=== PATIENT | female | born 1985 | race Two or more races ===

== ENCOUNTER 2025-03-10 21:51 | Inpatient (IN) | payer OTHER ==
[2025-03-10 22:30] VITALS: BMI 35.6
[2025-03-10] MEDS ORDERED: hydrOXYzine PAMOATE 25 MG CAPSULE (FP) PO PRN (22:42)
[2025-03-10] MEDS ORDERED: MAG HYDROX/AL HYDROX/SIMETH 30 ML UNIT-DOSE CUP PO PRN (22:42)
[2025-03-10] MEDS ORDERED: IBUPROFEN 400 MG TABLET (FP) PO PRN (22:42)
[2025-03-10] MEDS ORDERED: DICYCLOMINE HCL 10 MG CAPSULE PO PRN (22:42)
[2025-03-10] MEDS ORDERED: ACETAMINOPHEN 325 MG TABLET (FP) PO PRN (22:42)
[2025-03-10] MEDS ORDERED: LOPERAMIDE HCL 2 MG CAPSULE PO PRN (22:42)
[2025-03-10] MEDS ORDERED: BENZOCAINE/MENTHOL (CHLORASEPTIC ) LOZENGE MM PRN (22:42)
[2025-03-10] MEDS ORDERED: NALOXONE (NARCAN) HCL 4 MG/0.1 ML SPRAY NS PRN (22:42)
[2025-03-10] MEDS ORDERED: POLYETHYLENE GLYCOL (HEALTHYLAX) 3350 17 GM PACKET PO PRN (22:42)
[2025-03-10] MEDS ORDERED: METHOCARBAMOL 500 MG TABLET PO PRN (22:42)
[2025-03-10] MEDS ORDERED: ONDANSETRON *ODT* 4 MG TABLET SL PRN (22:42)
[2025-03-10] MEDS ORDERED: MAGNESIUM HYDROX 2400MG/30ML ORAL SUSPENSION 30 ML CUP PO PRN (22:42)
[2025-03-10] MEDS ORDERED: BENZONATATE 200 MG CAPSULE PO PRN (22:42)
[2025-03-10] MEDS ORDERED: guaiFENesin 600 MG TABLET.ER (FP) PO PRN (22:42)
[2025-03-10] MEDS ORDERED: IBUPROFEN 600 MG TABLET (FP) PO PRN (22:42)
[2025-03-10] MEDS ORDERED: BISMUTH SUBSALICYLATE 524 MG/30 ML PO PRN (22:42)
[2025-03-11] MEDS: PRENATAL VITAMINS W/ FOLIC ACID TABLET (FP) PO SCH (10:09)
[2025-03-11 11:01] LABS: MCHC 33.6 g/dl (32.2-35.5); MEAN CELL VOLUME 91.0 fl (79.4-94.8); MEAN PLT VOLUME 10.6 fl (9.4-12.3); RDW 12.3 % (12.1-16.8)
[2025-03-11 11:08] LABS: GLUCOSE,RANDOM 92 mg/dL (74-106); TOT PROT 6.9 g/dl (6.4-8.2)
[2025-03-11 11:11] LABS: ALK PHOS 126 U/L (40-150)
[2025-03-11 11:14] LABS: CREATININE 0.83 mg/dL (0.55-1.3); SGOT/AST 53 U/L (5-34); SGPT/ALT 31 U/L (0-55)
[2025-03-11 11:30] LABS: CO2 28 mmol/L (21-32)
[2025-03-11] MEDS: POTASSIUM CHLORIDE TABS 20 MEQ TABLET.ER (FP) PO ONE (15:41)
[2025-03-11] MEDS ORDERED: POTASSIUM CHLORIDE TABS 10 MEQ TABLET.ER (FP) PO ONE (15:45)
[2025-03-11] MEDS ORDERED: MELATONIN 5 MG TABLETS PO SCH (22:00)
[2025-03-11] MEDS: THIAMINE 100 MG TABLET PO SCH (22:45)
[2025-03-11] MEDS: SUVOREXANT 10 MG TABLET PO PRN (22:45)
[2025-03-13 10:28] LABS: GLUCOSE,RANDOM 88.0 mg/dL (74-106); TOT PROT 6.1 g/dl (6.4-8.2)
[2025-03-13 10:29] LABS: CO2 27.0 mmol/L (21-32)
[2025-03-13 10:31] LABS: ALK PHOS 94.0 U/L (40-150)
[2025-03-13 10:34] LABS: CREATININE 0.81 mg/dL (0.55-1.3); SGOT/AST 44.0 U/L (5-34); SGPT/ALT 31.0 U/L (0-55)
[2025-03-15 07:02] VITALS: RESP 18
[2025-03-15 09:33] VITALS: BP 130/95; PULSE 84; TEMP 97.6
== END 2025-03-15 10:45 | disposition home or self-care (01) | DRG 775 ==
LOC: YASAS 21:51 → Y6N 23:00
PROVIDERS: ADMIT Neuromusculoskeletal Medicine & OMM; ATTEND Counselor Addiction (Substance Use Disorder)
PROC: HZ2ZZZZ Detoxification Services for Substance Abuse Treatment (ICD-10-PCS; principal; 2025-03-10)
DX: F10.230 Alcohol dependence with withdrawal, uncomplicated (principal); F10.282 Alcohol dependence with alcohol-induced sleep disorder; F10.24 Alcohol dependence with alcohol-induced mood disorder; E87.6 Hypokalemia; I10 Essential (primary) hypertension
CPT/HCPCS: 36415; 80053; 80307; 85027; 86780; 93005; 93010